=== PATIENT | male | born 1990 | race Caucasian/White ===

== ENCOUNTER 2018-10-23 18:02 | Emergency (ER) | payer SELFPAY ==
[~2018-10-23] VITALS: Ht 170.2 cm; Wt 70.0 kg
[2018-10-23 18:26] VITALS: BP 105/45; Ht 170.2 cm; Wt 70.0 kg
== END 2018-10-23 19:10 | disposition home or self-care (01) ==
LOC: ED 18:02
DX: S01.81XD Laceration without foreign body of other part of head, subsequent encounter (principal); J45.909 Unspecified asthma, uncomplicated; W20.8XXD Other cause of strike by thrown, projected or falling object, subsequent encounter